=== PATIENT | male | born 1955 | race Asian ===

== ENCOUNTER 2025-09-07 11:45 | Emergency (ER) | payer MEDICARE, OTHER ==
[~2025-09-07] VITALS: Ht 172.7 cm; Wt 100.0 kg
[2025-09-07 11:55] VITALS: BP 0/0; PULSE 0; RESP 0; O2SAT 0
[2025-09-07] MEDS ORDERED: EPINEPHrine 1:10,000 [1 MG/10 ML] SYRINGE ONE (12:00)
== END 2025-09-07 15:05 ==
LOC: EMS 11:47
DX: I46.9 Cardiac arrest, cause unspecified (principal); E11.9 Type 2 diabetes mellitus without complications; E78.00 Pure hypercholesterolemia, unspecified; I10 Essential (primary) hypertension; F17.210 Nicotine dependence, cigarettes, uncomplicated
CPT/HCPCS: 99285; 92950; J0169